=== PATIENT | female | born 1970 | race Caucasian/White ===

== ENCOUNTER → 2018-01-26 11:06 | Outpatient (POV) | payer MEDICAID, SELFPAY | PROVIDERS: Family Provider Nurse Practitioner; PCP Nurse Practitioner; Visit Provider Dentist | DX: Z00.00 Encounter for general adult medical examination without abnormal findings (principal) ==

== ENCOUNTER → 2018-02-09 10:02 | Outpatient (POV) | payer MEDICAID, SELFPAY | PROVIDERS: Visit Provider Dentist | DX: Z00.00 Encounter for general adult medical examination without abnormal findings (principal) ==

== ENCOUNTER → 2018-03-23 09:02 | Outpatient (POV) | payer MEDICAID, SELFPAY | PROVIDERS: Visit Provider Dentist | DX: Z00.00 Encounter for general adult medical examination without abnormal findings (principal) ==

== ENCOUNTER → 2018-08-30 11:59 | Outpatient (CLI) | payer MEDICAID, SELFPAY ==
--- NOTE | 2018-08-30 12:04 | XR_ITS ---
EXAM: XR cervical spine 5V HISTORY: ITS.REASON: NECK PAIN ORDERING PHYSICIAN: Dary Kinsey PATIENT AGE: 48 years COMPARISON: None FINDINGS: Normal alignment. No fracture or dislocation. No lytic or blastic change. There is mild degenerative disc disease at C4-C5 and C5-C6. No obvious foraminal narrowing. No cervical rib. There is an old left second rib fracture IMPRESSION: Mild degenerative disc disease C4-C5 and C5-C6
== END ==
PROVIDERS: PCP Nurse Practitioner; Visit Provider Nurse Practitioner
DX: M54.2 Cervicalgia (principal)
CPT/HCPCS: 72050

== ENCOUNTER 2020-01-20 19:15 | Emergency (ER) | payer OTHER, SELFPAY ==
[2020-01-20 19:21] VITALS: BP 149/79; PULSE 84; RESP 16; TEMP 37.9; O2SAT 99; BMI 33.0
[2020-01-20 19:33] VITALS: BMI 32.9
--- NOTE | 2020-01-20 19:34 | CT_ITS ---
PROCEDURE: CT ABDOMEN PELVIS W CON CLINICAL INDICATION: abd pain Left upper quadrant pain radiating into the back COMPARISON: CT ABDPELW/O CT ABD PELVIS W/O CONTRAST from 01/17/2013 TECHNIQUE: IV Contrast: 75ML OPTIRAY 350 Oral Contrast None Axial images obtained with sagittal and coronal reformats. All CT scans at the facility use one or more dose reduction, viz: automated exposure control, ma/kV adjustment per patient size (including targeted exams where dose is matched to indication, i.e. head), or iterative reconstruction technique. FINDINGS: LOWER THORAX: No acute finding ABDOMEN & PELVIS: The liver, gallbladder, and spleen, and adrenal glands have an unremarkable appearance. No renal or ureteral calculi. No hydronephrosis. Small cysts there is a coarse calcification in the head of the pancreas not significantly changed. No intestinal obstruction or free air. There is mild prominence of the tip of the appendix measuring up to 8 mm. This is without stranding of the periappendiceal fat. This is of questionable clinical significance. Previously the tip of the appendix measured approximately 6-7 mm. There has been a prior hysterectomy. There is mild thickening of the urinary bladder wall. Postsurgical changes are present in the lumbar spine at the L5-S1 level. There are mildly prominent periportal lymph nodes. There is sclerosis of the left hip at the acetabular region and left femoral neck. There is also sclerosis of the ischial tuberosity region. This is not significantly changed IMPRESSION: 1. Mild prominence of the tip of the appendix. This is of questionable clinical significance and needs correlation with clinical findings. 2. Mild periportal adenopathy etiology indeterminate. Consider follow-up to confirm stability. This could be reactive or neoplastic in nature. This 3. Sclerosis of the left hemipelvis in the acetabular region and left femoral neck. This does not appear significantly changed and could be related to old injury or Paget's disease. This was described on an older exam of 10/16/2012 4. There is mild urinary bladder wall thickening which may be seen with incomplete distension, chronic outflow obstruction, or cystitis. Dictated by: Ad Sands MD 01/21/2020 08:19 Ad Sands MD in [facility] 01/21/2020 08:19
--- NOTE | 2020-01-20 19:38 | [facility].EDGENADL ---
ED Disposition Condition on Discharge: Undetermined - Critical Care Critical Care Time: No <Matthieu Ayoub - Last Filed: 01/20/20 19:38> Condition on Discharge: Good Time of Disposition: 21:43 - Critical Care Critical Care Time: No <Calderon Howell - Last Filed: 01/20/20 21:44> Clinical Impression: Abdominal pain Qualifiers: Abdominal location: left upper quadrant Qualified Code(s): R10.12 - Left upper quadrant pain Disposition: Home, Self-Care Instructions: Acute Abdominal Pain Additional Instructions: No up with your PCP. If you have any new, changing, worsening, or concerning symptoms, come back to the emergency department immediately. Referrals: Dary Kinsey APRN [Primary Care Provider] - Attestation: On 01/20/20, the high probability of a clinically significant, sudden or life threatening deterioration of the following system(s) required my full and direct attention, intervention and personal management. The time I documented below is in addition to time spent performing reported procedures but includes the following listed in this critical care notation. Medical Decision Making - Medical Records Medical records reviewed: Yes: I reviewed the patient's medical records. - Jon Inquiry Pt receiving controlled substance: No <Matthieu Ayoub - Last Filed: 01/20/20 19:38> - Medical Records MR Comment: Assessed the patient, and examined her abdomen again, I did not elicit any tenderness in the right lower quadrant. She contends that she has no pain here or around her umbilicus and all of her pain is in the left upper quadrant. CT scan was personally reviewed and does not show any acute findings. She has an appendix that measures 8 mm at the tip, but there is no surrounding inflammation or fluid and given that she is tolerating p.o. and nontender, do not feel that this is appendicitis. Tolerating PO states that her pain in the left upper quadrant is some worse after eating, advised that she follow-up with GI. However, I did give her strict return precautions in case she develops pain in the right lower quadrant or worsening pain at all, or other symptoms. Also given discharge instructions and verbalized understanding and agreement to the plan. Safe to discharge. - Lab Data Result diagrams: 01/20/20 19:50 01/20/20 19:50 <Calderon Howell - Last Filed: 01/20/20 21:44> Vital Signs: 01/20/20 19:21 01/20/20 21:34 Temperature 100.2 F H Temperature Source Oral Pulse Rate [Right Brachial] 84 62 Respiratory Rate 16 17 Blood Pressure [Right Arm] 149/79 H 107/51 L Blood Pressure Mean [Right Arm] 102 69 Blood Pressure Source [Right Arm] Automatic Cuff Automatic Cuff Blood Pressure Position [Right Arm] Sitting Supine 02 Sat by Pulse Oximetry 99 96 Oxygen Delivery Method Room Air Room Air - Lab Data Lab Results 01/20/20 19:50: WBC 8.0, RBC 4.06 L, Hgb 12.1 L, Hct 36.4 L, MCV 89.7, MCH 29.7, MCHC 33.1, RDW 13.5, Plt Count 266, MPV 7.4, Neut % (Auto) 57.4, Lymph % (Auto) 34.3, Bladen % (Auto) 4.8, Eos % (Auto) 2.6, Baso % (Auto) 0.9, Neut # (Auto) 4.6, Lymph # (Auto) 2.7, Bladen # (Auto) 0.4, Eos # (Auto) 0.2, Baso # (Auto) 0.1 01/20/20 19:50: Sodium 137, Potassium 3.6, Chloride 105, Carbon Dioxide 25, Anion Gap 10.6, BUN 15, Creatinine 1.00, Estimated Creat Clear 87, Estimated GFR 59, Est GFR ( Amer) 71, Glucose 109 H, Calcium 8.7, Total Bilirubin 0.2, AST 20, ALT 13, Alkaline Phosphatase 100, Total Protein 7.5, Albumin 3.9, Globulin 3.6 H, Albumin/Globulin Ratio 1.1, Lipase 35 01/20/20 19:50: Lactate 1.1 Orders (Tests/Meds): ED MEDICATIONS Generic Name Dose Route Start Last Admin Trade Name Freq PRN Reason Stop Dose Admin Sodium Chloride 1,000 mls @ 999 mls/hr 01/20/20 19:45 01/20/20 20:29 Sod Chlor 0.9% 1000ml Bag IV 01/20/20 20:45 999 mls/hr .Q1H1M KEN Administration Discontinued Medications Generic Name Dose Route Start Last Admin Trade Name Freq PRN Reason Stop Dose
[2020-01-20 20:10] LABS: Basophils # 0.1 K/mm3 (0-0.2); Basophils % 0.9 % (0.1-2.0); Eosinophils # 0.2 K/mm3 (0.0-0.4); Eosinophils % 2.6 % (0.1-12.0); Hematocrit 36.4 % (37.0-47.0); Hemoglobin 12.1 g/dL (12.2-16.2); Lymphocytes # 2.7 K/mm3 (0.7-4.5); Lymphocytes % 34.3 % (10-50); Mean Corpuscular HGB Conc 33.1 g/dL (31.8-35.4); Mean Corpuscular Hemoglobin 29.7 pg (27.0-31.2); Mean Corpuscular Volume 89.7 fl (81-99); Mean Platelet Volume 7.4 fl (7.4-10.4); Monocytes # 0.4 K/mm3 (0.1-1.0); Monocytes % 4.8 % (1.7-9.3); Neutrophils # 4.6 K/mm3 (1.8-7.8); Neutrophils % 57.4 % (37.0-80.0); Platelet Count 266 K/mm3 (142-424); Red Blood Count 4.06 M/mm3 (4.20-5.40); Red Cell Distribution Width 13.5 % (11.5-17.5)
[2020-01-20 20:14] LABS: Alanine Aminotransferase 13 U/L (12-78); Albumin Level 3.9 g/dl (3.5-5.0); Albumin/Globulin Ratio 1.1 (1.1-1.8); Alkaline Phosphatase 100 U/L (38-126); Anion Gap 10.6 mEq/L (5-15); Aspartate Amino Transferase 20 U/L (14-36); Bilirubin,Total 0.2 mg/dl (0.2-1.3); Blood Urea Nitrogen 15 mg/dl (7-17); Calcium 8.7 mg/dl (8.4-10.2); Carbon Dioxide 25 mmol/L (22.0-30.0); Chloride 105 mmol/L (98-107); Creatinine Clearance Estimated 87 mL/min (50-200); Estimated Glomerular Filt Rate 59 ml/min (>60); GFR (African American) 71 ML/MIN (>60); Globulin 3.6 g/dL (1.3-3.2); Glucose 109 mg/dl (74-100); Lactic Acid 1.1 mmol/L (0.7-2.1); Lipase 35 U/L (23-300); Potassium 3.6 mmoL/L (3.5-5.1); Sodium 137 mmol/L (136-145); Total Protein,Serum 7.5 g/dl (6.3-8.2)
--- NOTE | 2020-01-20 21:03 | PC.NURSE ---
Patient with multiple drug allergies. MD aware of Toradol on allergies, request to give 15 mg
[2020-01-20 21:34] VITALS: BP 107/51; PULSE 62; RESP 17; O2SAT 96
[2020-01-20 21:45] VITALS: BP 107/51; PULSE 58; RESP 16; TEMP 37.2; O2SAT 96
== END 2020-01-20 21:47 | disposition home or self-care (01) ==
PROVIDERS: Emergency Provider Physician Assistant; PCP Nurse Practitioner
DX: R10.12 Left upper quadrant pain (principal); F41.8 Other specified anxiety disorders; J44.9 Chronic obstructive pulmonary disease, unspecified; K21.9 Gastro-esophageal reflux disease without esophagitis; I10 Essential (primary) hypertension; Z87.891 Personal history of nicotine dependence; Z90.710 Acquired absence of both cervix and uterus; Z88.5 Allergy status to narcotic agent; Z88.8 Allergy status to other drugs, medicaments and biological substances
CPT/HCPCS: 74177; 80053; 83605; 83690; 85025; 87040; 96365; 96375; 99283; Q9967

== ENCOUNTER → 2020-07-16 10:23 | Outpatient (CLI) | payer OTHER, SELFPAY ==
--- NOTE | 2020-07-16 10:29 | XR_ITS ---
PROCEDURE: XR CHEST 2V CLINICAL HISTORY: SOB COMPARISON: CR CXR CHEST(2 VIEWS-NOT PORTABLE) from 02/15/2013 CR CXR CHEST(2 VIEWS-NOT PORTABLE) from 09/27/2013 FINDINGS: The cardiomediastinal silhouette and pulmonary vascularity are within normal limits. The lungs are clear without infiltrates, suspicious nodules, or pleural effusions. No acute bony abnormalities. IMPRESSION: No acute findings. Dictated by: Ad Sands MD 07/16/2020 16:42 Ad Sands MD in [facility] 07/16/2020 16:42
--- NOTE | 2020-07-16 10:29 | XR_ITS ---
PROCEDURE: XR SHOULDER RT MIN 2V CLINICAL INDICATION: ? ARTHRITIS Pain with limited range of motion COMPARISON: No exams were available for comparison FINDINGS: No fracture or dislocation. No lytic or blastic change. There is normal mineralization. Minimal osteoarthritic changes the glenohumeral joint. Other findings:None. IMPRESSION: Minimal osteoarthritis glenohumeral joint Dictated by: Ad Sands MD 07/16/2020 16:41 Ad Sands MD in [facility] 07/16/2020 16:41
== END ==
PROVIDERS: PCP Nurse Practitioner Family; Visit Provider Nurse Practitioner Family
DX: R06.02 Shortness of breath (principal); M25.511 Pain in right shoulder
CPT/HCPCS: 71046; 73030

== ENCOUNTER → 2020-08-14 14:05 | Outpatient (CLI) | payer OTHER, SELFPAY | PROVIDERS: PCP Nurse Practitioner Family; Visit Provider Nurse Practitioner Family | DX: R06.02 Shortness of breath (principal) | CPT/HCPCS: 94010 ==

== ENCOUNTER → 2020-08-28 16:10 | Outpatient (CLI) | payer OTHER, SELFPAY ==
--- NOTE | 2020-08-28 16:14 | MR_ITS ---
PROCEDURE: MR SHOULDER RT WO CON CLINICAL INDICATION: RIGHT SHOULDER PAIN, DECREASED ROM Pt c/o rt shoulder pain and rt arm weakness. Limited ROM x1year with no known injury or trauma. COMPARISON: DX XR SHOULDER RT MIN 2V from 07/16/2020 TECHNIQUE: Routine multiplanar multi echo sequences are performed without gadolinium enhancement. FINDINGS: Mild acromioclavicular hypertrophy with subacromial stenosis of approximately 4 mm. No evidence of rotator cuff tear. The supraspinatus, infraspinatus, subscapularis, and teres minor tendons appear intact. There does appear to be a SLAP tear of the anterior glenoid labrum from the 12:00 to 3:00 region. The bicipital tendon is in place. Minimal amount fluid in the bicipital tendon sheath. No fracture or dislocation. IMPRESSION: 1. Slap tear of the glenoid labrum. 2. Low-lying acromion with subacromial stenosis. 3. Mild tenosynovitis of the bicipital tendon sheath Dictated by: Ad Sands MD 09/01/2020 12:02 Ad Sands MD in [place] 09/01/2020 12:02
== END ==
PROVIDERS: PCP Nurse Practitioner Family; Visit Provider Nurse Practitioner Family
DX: M25.511 Pain in right shoulder (principal); M25.611 Stiffness of right shoulder, not elsewhere classified
CPT/HCPCS: 73221

== ENCOUNTER 2020-09-05 15:48 | Emergency (ER) | payer OTHER, SELFPAY ==
[2020-09-05 16:08] VITALS: BP 162/81; PULSE 59; RESP 18; TEMP 37.1; O2SAT 100; BMI 32.0
--- NOTE | 2020-09-05 16:40 | HMH.EDUTC ---
[facility] [place] Clinical Impression: Superior glenoid labrum lesion of right shoulder, initial encounter Disposition: Home, Self-Care Condition on Discharge: Good Instructions: Labral Tear Additional Instructions: Follow up with ortho Prescriptions: Lidocaine [Lidoderm 5% transdermal patch] 1 each TP Q24H 30 Days #30 adh..patch Transmission Status: Pending to [facility] Referrals: Jessenia Sánchez APRN [Primary Care Provider] - Time of Disposition: 16:58 Medical Decision Making - Medical Records Medical records reviewed: Yes: I reviewed the patient's medical records. - Jon Inquiry Pt receiving controlled substance: No Vital Signs: 09/05/20 16:08 Temperature 98.7 F Temperature Source Oral Pulse Rate [Left Radial] 59 L Respiratory Rate 18 Blood Pressure [Left Arm] 162/81 H Blood Pressure Mean [Left Arm] 108 Blood Pressure Source [Left Arm] Automatic Cuff Blood Pressure Position [Left Arm] Sitting 02 Sat by Pulse Oximetry 100 Oxygen Delivery Method Room Air [facility] [place] - General Stated complaint: labrel tear in R shoulder Time Seen by Provider: 09/05/20 16:52 Mode of Arrival: Ambulatory Source of Information: Patient Limitations: No Limitations Description of Symptoms (Recalled from Triage Doc. by RN): Pt c/o R shoulder pain, pt reports she has had an MRI and has been told she has a tear in her shoulder. Pt reports she is wanting medication for pain, states her family doctor office told her they wouldn't write her anything - History of Present Illness Provider Complaint: Patient has pain in her right shoulder. Has been dealing with pain in her right shoulder for the past few months and was diagnosed with a labral tear this am. Saw her PCP who would not write her pain medications. She is allergic to NSAIDs. She is already taking muscle relaxers for her back. She is not sleeping due to the pain. Onset (ago): day(s) (1) Location: right, upper extremity Relieving factors: none Exacerbating factors: none Treatments prior to arrival: none - Related Data Home Medications Medication Instructions Recorded Confirmed alprazolam 1 mg tablet 1 mg PO QID 30 Days #120 07/15/17 07/03/20 atenolol 50 mg tablet 50 mg PO BID 30 Days #60 07/15/17 07/03/20 levothyroxine 75 mcg tablet 75 mcg PO DAILY 30 Days #30 07/15/17 07/03/20 oxybutynin chloride 5 mg tablet 5 mg PO BID 30 Days #60 07/15/17 07/03/20 trazodone 150 mg tablet 150 mg PO DAILY 30 Days #30 07/15/17 07/03/20 Sertraline HCl [Zoloft] 25 mg PO DAILY 08/18/19 07/03/20 celecoxib 200 mg capsule 200 mg PO cap 05/01/20 07/03/20 cyclobenzaprine 10 mg tablet 10 mg PO tab 05/01/20 07/03/20 omeprazole 20 mg capsule,delayed 20 mg PO cap 05/01/20 07/03/20 release topiramate 50 mg tablet 150 mg PO BID 30 Days #180 tab 05/01/20 07/03/20 verapamil 40 mg tablet 40 mg NG-TUBE tab 05/01/20 07/03/20 Previous Rx's Medication Instructions Recorded cephalexin 500 mg capsule 500 mg PO BID 10 Days #20 cap 05/01/20 ciprofloxacin 0.3 %-dexamethasone 4 drp OTIC BID 7 Days #7.5 ml 05/01/20 0.1 % ear drops,suspension methylprednisolone 4 mg tablets in See Rx Instructions PO PER PKG DIR 05/01/20 a dose pack #21 tab Lidocaine [Lidoderm 5% transdermal 1 each TP Q24H 30 Days #30 09/05/20 patch] adh..patch Allergies Allergy/AdvReac Type Severity Reaction Status Date / Time venlafaxine [From Effexor] Allergy Verified 07/03/20 15:20 From LORTAB Allergy Severe S-DIFF. Uncoded 07/03/20 15:20 BREATHING Naproxen Allergy Severe S-SWELLS-OR Uncoded 07/03/20 15:20 AL/THROAT From EFFEXOR Allergy Intermediate I-RASH Uncoded 07/03/20 15:20 From TAMIFLU Allergy Intermediate VOMITTING Uncoded 07/03/20 15:20 ADHESIVE Allergy Mild I-ITCHING Uncoded 07/03/20 15:20 From MOTRIN Allergy Mild INCREASED Uncoded 07/03/20 15:20 HR From VALIUM Allergy Mild INCREASE HR Uncoded 07/03/20 15:20 TRAMADOL Allergy Unknown INCREASED Uncoded 07/03/20 15:20 HR
[2020-09-05 16:45] VITALS: BP 175/100; PULSE 73; RESP 16; TEMP 36.8; O2SAT 98; BMI 31.1
[2020-09-05 17:08] VITALS: BP 172/98; PULSE 70; RESP 16; TEMP 36.8; O2SAT 98
== END 2020-09-05 17:09 | disposition home or self-care (01) ==
LOC: ER 16:13 → UTC 16:16
PROVIDERS: Emergency Provider Physician Assistant; PCP Nurse Practitioner Family
DX: S43.431A Superior glenoid labrum lesion of right shoulder, initial encounter (principal); F41.8 Other specified anxiety disorders; J44.9 Chronic obstructive pulmonary disease, unspecified; K21.9 Gastro-esophageal reflux disease without esophagitis; I10 Essential (primary) hypertension; Z87.891 Personal history of nicotine dependence; Z88.5 Allergy status to narcotic agent; Z88.8 Allergy status to other drugs, medicaments and biological substances; Z79.899 Other long term (current) drug therapy
CPT/HCPCS: 99202; G0463

== ENCOUNTER 2020-09-07 19:07 | Emergency (ER) | payer OTHER, SELFPAY ==
[2020-09-07 19:18] VITALS: BP 151/91; PULSE 72; RESP 17; TEMP 36.5; O2SAT 96; BMI 30.7
--- NOTE | 2020-09-07 19:26 | XR_ITS ---
PROCEDURE: XR CHEST PORTABLE CLINICAL HISTORY: heart palpitations COMPARISON: CR CXR CHEST(2 VIEWS-NOT PORTABLE) from 02/15/2013 CR CXR CHEST(2 VIEWS-NOT PORTABLE) from 09/27/2013 DX XR CHEST 2V from 07/16/2020 FINDINGS: The cardiomediastinal silhouette and pulmonary vascularity are within normal limits. The lungs are clear without infiltrates, suspicious nodules, or pleural effusions. No acute bony abnormalities. IMPRESSION: No acute findings. Dictated by: Ad Sands MD 09/08/2020 06:18 Ad Sands MD in [facility] 09/08/2020 06:18
--- NOTE | 2020-09-07 19:26 | CT_ITS ---
PROCEDURE: CT HEAD/BRAIN WO CON CLINICAL INDICATION: headache COMPARISON: No exams were available for comparison TECHNIQUE: Axial images obtained. All CT scans at the facility use one or more dose reduction, viz: automated exposure control, ma/kV adjustment per patient size (including targeted exams where dose is matched to indication, i.e. head), or iterative reconstruction technique. FINDINGS: No midline shift, mass effect, intracranial hemorrhage, hydrocephalus, or extra-axial fluid collection is evident. The calvarium has an unremarkable appearance. No mastoid effusion. No sinus air-fluid level. IMPRESSION: No acute intracranial finding Dictated by: Ad Sands MD 09/08/2020 07:14 Ad Sands MD in [facility] 09/08/2020 07:14
--- NOTE | 2020-09-07 19:26 | ECG_ITS ---
APPROVED REPORT Exam: Resting ECG HR:56 bpm ECG Measurements Heart Rate 56 AXES MA 180 P 22 QRSd 72 QRS 25 QT 412 T 9 QTc 397 Conclusion Sinus bradycardia Nonspecific T wave abnormality Abnormal ECG Electronically signed by : Rodriguez Carty, 09/08/2020 18:05:10
[2020-09-07 20:09] LABS: Basophils # 0.1 K/mm3 (0-0.2); Basophils % 0.9 % (0.1-2.0); Eosinophils # 0.4 K/mm3 (0.0-0.4); Eosinophils % 4.6 % (0.1-12.0); Hematocrit 39.3 % (37.0-47.0); Hemoglobin 12.6 g/dL (12.2-16.2); Lymphocytes # 3.2 K/mm3 (0.7-4.5); Mean Corpuscular Hemoglobin 28.8 pg (27.0-31.2); Mean Corpuscular Volume 89.9 fl (81-99); Mean Platelet Volume 7.1 fl (7.4-10.4); Monocytes # 0.4 K/mm3 (0.1-1.0); Neutrophils # 5.5 K/mm3 (1.8-7.8); Neutrophils % 57.6 % (37.0-80.0); Platelet Count 274 K/mm3 (142-424); Red Blood Count 4.37 M/mm3 (4.20-5.40); White Blood Count 9.6 K/mm3 (4.8-10.8)
--- NOTE | 2020-09-07 20:18 | [facility].EDGENADL ---
ED Disposition Clinical Impression: Superior glenoid labrum lesion of right shoulder, initial encounter Headache Qualifiers: Headache type: unspecified Headache chronicity pattern: acute headache Intractability: not intractable Qualified Code(s): R51.9 - Headache, unspecified Chest pain Qualifiers: Chest pain type: unspecified Qualified Code(s): R07.9 - Chest pain, unspecified Disposition: Home, Self-Care Condition on Discharge: Good Instructions: DI for Acute Pain -- Adult Additional Instructions: call pcp in am Referrals: Jessenia Sánchez APRN [Primary Care Provider] - - Critical Care Critical Care Time: No Attestation: On 09/07/20, the high probability of a clinically significant, sudden or life threatening deterioration of the following system(s) required my full and direct attention, intervention and personal management. The time I documented below is in addition to time spent performing reported procedures but includes the following listed in this critical care notation. Medical Decision Making - Medical Records Medical records reviewed: Yes: I reviewed the patient's medical records. - Jon Inquiry Pt receiving controlled substance: No Vital Signs: 09/07/20 19:18 Temperature 97.7 F Temperature Source Oral Pulse Rate [Left Brachial] 72 Respiratory Rate 17 Blood Pressure [Left Arm] 151/91 H Blood Pressure Mean [Left Arm] 111 Blood Pressure Source [Left Arm] Automatic Cuff Blood Pressure Position [Left Arm] Sitting 02 Sat by Pulse Oximetry 96 Oxygen Delivery Method Room Air - Lab Data Lab results reviewed: Yes: I reviewed the patient's lab results. Lab Results 09/07/20 19:55: WBC 9.6, RBC 4.37, Hgb 12.6, Hct 39.3, MCV 89.9, MCH 28.8, MCHC 32.0, RDW 14.0, Plt Count 274, MPV 7.1 L, Neut % (Auto) 57.6, Lymph % (Auto) 33.0, Perry % (Auto) 4.0, Eos % (Auto) 4.6, Baso % (Auto) 0.9, Neut # (Auto) 5.5, Lymph # (Auto) 3.2, Perry # (Auto) 0.4, Eos # (Auto) 0.4, Baso # (Auto) 0.1 09/07/20 19:55: Sodium 136, Potassium 3.9, Chloride 106, Carbon Dioxide 22, Anion Gap 11.9, BUN 16, Creatinine 0.90, Estimated Creat Clear 89, Estimated GFR 66, Est GFR ( Amer) 80, Glucose 153 H, Calcium 8.7, Troponin I < 0.01, TSH 1.06, Thyroxine (T4) 9.5 Result diagrams: 09/07/20 19:55 09/07/20 19:55 Orders (Tests/Meds): ED MEDICATIONS Discontinued Medications Generic Name Dose Route Start Last Admin Trade Name Freq PRN Reason Stop Dose Admin Ketorolac Tromethamine 30 mg 09/07/20 20:25 09/07/20 20:47 Ketorolac 30mg/Ml Vial IV 09/07/20 20:26 Not Given ONCE ONE Methylprednisolone Sodium Succinate 125 mg 09/07/20 20:35 09/07/20 20:47 Methylprednisolone Sod Succ 125mg Vial IV 09/07/20 20:36 Not Given ONCE ONE Methylprednisolone Sodium Succinate 125 mg 09/07/20 20:47 09/07/20 20:48 Methylprednisolone Sod Succ 125mg Vial IM 09/07/20 20:48 125 mg ONCE ONE Administration ORDERS Category Date Time Status CT head/brain wo con Stat Cat Scan 09/07/20 19:26 Taken XR chest portable Stat Exams 09/07/20 19:26 Taken Troponin I Q3H Lab 09/07/20 22:30 Ordered Troponin I Q3H Lab 09/08/20 01:30 Ordered - Radiology Data #1 Image(s): Chest Image Reviewed: Yes I reviewed the patient's radiology image Preliminary Findings: Normal/NAD - CT Data CT Scan: Head Time Received: 21:[address] Reviewed: Yes: I have viewed the radiologist's interpretation Preliminary Findings: Normal/NAD - ECG Data Tracing #1 Normal Sinus Rhythm: Yes Ischemic changes: non-specific ST-T wave changes - MARIA ESTHER Score for Non-Stemi Age of Patient: 50-59 years old Heart Rate: 70-89 bpm Systolic Blood Pressure: 140-159 mmHg Serum Creatinine: 0.80-1.19 mg/dl CHF Killip Class: I-No CHF Other Risk Factors: None Non-Stemi Risk Score: 81 Medical Decision Narrative: has slap type injurt rt shoulder per her mri and has assoc pain with mohamud and not feeling well but neg w/u General Adult
[2020-09-07 20:28] LABS: Anion Gap 11.9 mEq/L (5-15); Blood Urea Nitrogen 16 mg/dl (7-17); Calcium 8.7 mg/dl (8.4-10.2); Carbon Dioxide 22 mmol/L (22.0-30.0); Chloride 106 mmol/L (98-107); Creatinine Clearance Estimated 89 mL/min (50-200); Estimated Glomerular Filt Rate 66 ml/min (>60); GFR (African American) 80 ML/MIN (>60); Glucose 153 mg/dl (74-100); Potassium 3.9 mmoL/L (3.5-5.1); Sodium 136 mmol/L (136-145)
[2020-09-07 20:43] LABS: Troponin I < 0.01 ng/ml (0.00-0.034)
[2020-09-07 20:46] LABS: T4 (Thyroxine) 9.5 ug/dl (5.53-11.0)
[2020-09-07 21:00] LABS: Thyroid Stimulating Hormone 1.06 uIU/mL (0.465-4.68)
[2020-09-07 21:31] VITALS: BP 126/61; PULSE 73; RESP 18; TEMP 36.8; O2SAT 98
== END 2020-09-07 21:34 | disposition home or self-care (01) ==
PROVIDERS: Emergency Medicine; Emergency Provider Emergency Medicine; PCP Nurse Practitioner Family
DX: S43.431A Superior glenoid labrum lesion of right shoulder, initial encounter (principal); R51.9 Headache, unspecified; F41.8 Other specified anxiety disorders; K21.9 Gastro-esophageal reflux disease without esophagitis; J44.9 Chronic obstructive pulmonary disease, unspecified; I10 Essential (primary) hypertension; Z87.891 Personal history of nicotine dependence; Z79.899 Other long term (current) drug therapy; Z88.8 Allergy status to other drugs, medicaments and biological substances
CPT/HCPCS: 36415; 70450; 71045; 80048; 84436; 84443; 84484; 85025; 93005; 96372; 99282

== ENCOUNTER 2020-09-11 14:03 | Emergency (ER) | payer OTHER, SELFPAY ==
[2020-09-11 14:08] VITALS: BP 147/82; PULSE 63; RESP 14; TEMP 37.1; O2SAT 95; BMI 31.1
--- NOTE | 2020-09-11 14:25 | HMH.EDUTC ---
[facility] [place] Impression: Contact dermatitis Qualifiers: Contact dermatitis type: unspecified Contact dermatitis trigger: unspecified trigger Qualified Code(s): L25.9 - Unspecified contact dermatitis, unspecified cause Disposition: Home, Self-Care Condition on Discharge: Good Instructions: DI for Contact Dermatitis Additional Instructions: Avoid contact with the offending substance. Follow up with your regular doctor. GO TO THE ER FOR ANY WORSENING SYMPTOMS OR CONCERNS Referrals: Jessenia Sánchez APRN [Primary Care Provider] - Time of Disposition: 15:00 Medical Decision Making - Medical Records Medical records reviewed: No: I reviewed the patient's medical records. - Jon Inquiry Pt receiving controlled substance: No Vital Signs: 09/11/20 14:08 09/11/20 15:08 Temperature 98.7 F 98 F Temperature Source Oral Pulse Rate 65 Pulse Rate [Right] 63 Respiratory Rate 14 19 Blood Pressure 142/86 H Blood Pressure [Right Arm] 147/82 H Blood Pressure Mean [Right Arm] 103 02 Sat by Pulse Oximetry 95 Orders (Tests/Meds): ED MEDICATIONS Discontinued Medications Generic Name Dose Route Start Last Admin Trade Name Roxanna PRN Reason Stop Dose Admin Methylprednisolone Acetate 60 mg 09/11/20 14:43 09/11/20 14:49 Methylprednisolone Acetate 40mg/Ml Vial IM 09/11/20 14:44 60 mg ONCE ONE Administration [facility] [place] - General Stated complaint: rash on left side of face Time Seen by Provider: 09/11/20 14:25 Mode of Arrival: Ambulatory Source of Information: Patient Limitations: No Limitations Description of Symptoms (Recalled from Triage Doc. by RN): PT STATES SHE HAS A RAISED RASH ON HER CHIN. SHE ALSO HAS A BLISTER ON HER LEFT UPPER EYE LID. PT STATES SHE STARTED TYLENOL 3 TUESDAY AND IS NOT SURE IF THAT IS IT. ALSO SHE HAS AN OUTDOOR/INDOOR CAT AND STATES IT MAY HAVE BROUGHT POISON TESHA IN. HEENT Symptoms (Recalled from RN notes): No Resp Symptoms (Recalled from RN notes): No Skin Symptoms (Recalled from RN notes): Yes (RAISED RASH ON CHIN AND BLISTER/ PAPULE ON UPPER L EYELID) MS Symptoms (Recalled from RN notes): No Functional Status (Recalled from RN notes): NA - History of Present Illness Provider Complaint: She c/o having a rash that itches on the right side of her face for the past 2 days. - Related Data Home Medications Medication Instructions Recorded Confirmed alprazolam 1 mg tablet 1 mg PO QID 30 Days #120 07/15/17 07/03/20 atenolol 50 mg tablet 50 mg PO BID 30 Days #60 07/15/17 07/03/20 levothyroxine 75 mcg tablet 75 mcg PO DAILY 30 Days #30 07/15/17 07/03/20 oxybutynin chloride 5 mg tablet 5 mg PO BID 30 Days #60 07/15/17 07/03/20 trazodone 150 mg tablet 150 mg PO DAILY 30 Days #30 07/15/17 07/03/20 Sertraline HCl [Zoloft] 25 mg PO DAILY 08/18/19 07/03/20 topiramate 50 mg tablet 75 mg PO BID 30 Days #180 tab 05/01/20 07/03/20 verapamil 40 mg tablet 40 mg PO BID tab 05/01/20 07/03/20 Baclofen 5 mg PO BID 09/07/20 09/07/20 Lidocaine [Lidoderm 5% transdermal 1 each TP Q24H 09/07/20 patch] Allergies Allergy/AdvReac Type Severity Reaction Status Date / Time ketorolac [From Toradol] Allergy Verified 09/11/20 14:18 venlafaxine [From Effexor] Allergy Verified 09/11/20 14:18 From LORTAB Allergy Severe S-DIFF. Uncoded 07/03/20 15:20 BREATHING Naproxen Allergy Severe S-SWELLS-OR Uncoded 07/03/20 15:20 AL/THROAT From EFFEXOR Allergy Intermediate I-RASH Uncoded 07/03/20 15:20 From TAMIFLU Allergy Intermediate VOMITTING Uncoded 07/03/20 15:20 ADHESIVE Allergy Mild I-ITCHING Uncoded 07/03/20 15:20 From MOTRIN Allergy Mild INCREASED Uncoded 07/03/20 15:20 HR From VALIUM Allergy Mild INCREASE HR Uncoded 07/03/20 15:20 TRAMADOL Allergy Unknown INCREASED Uncoded 07/03/20 15:20 HR Albuterol AdvReac Mild INCREASE HR Uncoded 07/03/20 15:20 - Worker's Comp Is this a Worker's Comp case?: No [facility] History - Hepatitis A Screen Drug u
[2020-09-11 15:08] VITALS: BP 142/86; PULSE 65; RESP 19; TEMP 36.6
== END 2020-09-11 15:08 | disposition home or self-care (01) ==
PROVIDERS: Emergency Provider Nurse Practitioner Family; PCP Nurse Practitioner Family
DX: L25.9 Unspecified contact dermatitis, unspecified cause (principal); J44.9 Chronic obstructive pulmonary disease, unspecified; K21.9 Gastro-esophageal reflux disease without esophagitis; I10 Essential (primary) hypertension; E03.9 Hypothyroidism, unspecified; F41.8 Other specified anxiety disorders; Z87.891 Personal history of nicotine dependence; F43.12 Post-traumatic stress disorder, chronic; I34.1 Nonrheumatic mitral (valve) prolapse; Z79.899 Other long term (current) drug therapy
CPT/HCPCS: 96372; 99202; G0463; J1030

== ENCOUNTER 2020-10-02 08:21 | Emergency (ER) | payer OTHER, SELFPAY ==
[2020-10-02 08:22] VITALS: BP 111/86; PULSE 63; RESP 18; TEMP 36.6; O2SAT 97; BMI 29.9
--- NOTE | 2020-10-02 08:24 | HMH.EDGENADL ---
ED Disposition Clinical Impression: Dehydration, Hypokalemia Disposition: Home, Self-Care Condition on Discharge: Good Instructions: DI for Dehydration -- Adult, DI for Hypokalemia Additional Instructions: Stop chlorthalidone, call your primary care doctor today to see if you need to change her medication regimen. Follow-up within the next several days for recheck of labs and reevaluation. Referrals: Erik Noriega MD [Primary Care Provider] - 10/03/20 - Critical Care Critical Care Time: No Attestation: On , the high probability of a clinically significant, sudden or life threatening deterioration of the following system(s) required my full and direct attention, intervention and personal management. The time I documented below is in addition to time spent performing reported procedures but includes the following listed in this critical care notation. Medical Decision Making - Medical Records Medical records reviewed: Yes: I reviewed the patient's medical records. - Jon Inquiry Pt receiving controlled substance: No Vital Signs: 10/02/20 08:22 Temperature 97.9 F Temperature Source Oral Pulse Rate [Right] 63 Respiratory Rate 18 Blood Pressure [Right Arm] 111/86 Blood Pressure Mean [Right Arm] 94 02 Sat by Pulse Oximetry 97 Oxygen Delivery Method Room Air - Lab Data Lab results reviewed: Yes: I reviewed the patient's lab results. Lab Results 10/02/20 08:30: Urine Color Yellow, Urine Appearance Clear, Urine pH 6.0, Ur Specific Cummings 1.020, Urine Protein Negative, Urine Glucose (UA) Negative, Urine Ketones Negative, Urine Blood Negative, Urine Nitrate Negative, Urine Bilirubin Negative, Urine Urobilinogen 0.2, Ur Leukocyte Esterase Negative, Urine RBC None, Urine WBC 3-5, Ur Squamous Epith Cells 3-5, Urine Bacteria None 10/02/20 08:30: WBC 11.9 H, RBC 5.34, Hgb 15.5, Hct 45.9, MCV 86.0, MCH 29.1, MCHC 33.8, RDW 13.7, Plt Count 324, MPV 6.9 L, Neut % (Auto) 74.4, Lymph % (Auto) 18.3, [place] % (Auto) 6.0, Eos % (Auto) 0.8, Baso % (Auto) 0.5, Neut # (Auto) 8.8 H, Lymph # (Auto) 2.2, [place] # (Auto) 0.7, Eos # (Auto) 0.1, Baso # (Auto) 0.1 10/02/20 08:30: Sodium 132 L, Potassium 3.2 L, Chloride 91 L, Carbon Dioxide 29, Anion Gap 15.2 H, BUN 20 H, Creatinine 1.10 H, Estimated Creat Clear 71, Estimated GFR 52 L, Est GFR ( Amer) 63, Glucose 153 H, Calcium 9.3 Result diagrams: 10/02/20 08:30 10/02/20 08:30 Orders (Tests/Meds): ED MEDICATIONS Generic Name Dose Route Start Last Admin Trade Name Freq PRN Reason Stop Dose Admin Sodium Chloride 1,000 mls @ 999 mls/hr 10/02/20 09:00 Sod Chlor 0.9% 1000ml Bag IV 10/02/20 10:00 .Q1H1M [facility] Medical Decision Narrative: Patient with benign exam here, given a liter of fluids for what appears to be some dehydration from chlorthalidone. Advised calling her primary care doctor today to see if there might be an alternative medication for her. Recommended stopping this medication for now. She had a slightly low potassium and sodium which should improve with fluid resuscitation and p.o. potassium given here in the ED. She will need close follow-up with her PCP within the next several days for reevaluation. No UTI. Hemodynamically stable here. General Adult HPI - General Stated complaint: pain Time Seen by Provider: 10/02/20 08:24 Mode of Arrival: EMS Source of Information: Patient, EMS Limitations: No Limitations - History of Present Illness HPI narrative: This is a 50-year-old female with a past medical history significant for hypertension, anxiety, GERD, COPD who presents to the emergency department for evaluation of weakness and concern for possible medication reaction. Patient started taking chlorthalidone 4 days ago for assistance with blood pressure control. She states that she has been having increased urinary frequency, but no dysuria. She is concerned that she has been urinating too much however because yesterday she got in the shower, b
[2020-10-02 08:34] VITALS: BP 149/87; PULSE 61; O2SAT 96
[2020-10-02 08:40] LABS: Microscopic, Urine URINE MICROSCOPIC (MICROSCOPIC)
[2020-10-02 08:42] LABS: Appearance,Urine CLEAR (Clear); Basophils # 0.1 K/mm3 (0-0.2); Basophils % 0.5 % (0.1-2.0); Bilirubin,Urine Negative (Negative); Blood, Urine Negative (Negative); Color,Urine YELLOW (Yellow); Eosinophils # 0.1 K/mm3 (0.0-0.4); Eosinophils % 0.8 % (0.1-12.0); Glucose,Urine (UA) Negative (Negative); Hematocrit 45.9 % (37.0-47.0); Hemoglobin 15.5 g/dL (12.2-16.2); Ketones,Urine Negative (Negative); Leukocyte Esterase,Urine Negative (Negative); Lymphocytes # 2.2 K/mm3 (0.7-4.5); Lymphocytes % 18.3 % (10-50); Mean Corpuscular HGB Conc 33.8 g/dL (31.8-35.4); Mean Corpuscular Hemoglobin 29.1 pg (27.0-31.2); Mean Platelet Volume 6.9 fl (7.4-10.4); Monocytes # 0.7 K/mm3 (0.1-1.0); Neutrophils # 8.8 K/mm3 (1.8-7.8); Neutrophils % 74.4 % (37.0-80.0); Nitrate,Urine Negative (Negative); Platelet Count 324 K/mm3 (142-424); Protein,Urine Negative (Negative); Red Blood Count 5.34 M/mm3 (4.20-5.40); Red Cell Distribution Width 13.7 % (11.5-17.5); Urobilinogen,Urine 0.2 EU/dl (0.2); White Blood Count 11.9 K/mm3 (4.8-10.8)
[2020-10-02 08:45] LABS: Chloride 91 mmol/L (98-107); Potassium 3.2 mmoL/L (3.5-5.1); Sodium 132 mmol/L (136-145)
[2020-10-02 08:48] LABS: Anion Gap 15.2 mEq/L (5-15); Blood Urea Nitrogen 20 mg/dl (7-17); Carbon Dioxide 29 mmol/L (22.0-30.0); Creatinine Clearance Estimated 71 mL/min (50-200); Estimated Glomerular Filt Rate 52 ml/min (>60); GFR (African American) 63 ML/MIN (>60)
[2020-10-02 08:49] LABS: Calcium 9.3 mg/dl (8.4-10.2); Glucose 153 mg/dl (74-100)
[2020-10-02 09:01] VITALS: BP 129/85; PULSE 69; RESP 18; O2SAT 98
--- NOTE | 2020-10-02 09:12 | PC.NURSE ---
PATIENT UP FOR DISCHARGE BUT MD WANTS IV FLUIDS TO BE COMPLETE PRIOR TO DISCHARGE
[2020-10-02 09:30] VITALS: BP 132/86; PULSE 51; RESP 18; O2SAT 95
[2020-10-02 09:45] VITALS: BP 132/86; PULSE 51; RESP 16; TEMP 36.6; O2SAT 95
== END 2020-10-02 09:47 | disposition home or self-care (01) ==
PROVIDERS: Emergency Provider Emergency Medicine; PCP Family Medicine
DX: E86.0 Dehydration (principal); E87.6 Hypokalemia; K21.9 Gastro-esophageal reflux disease without esophagitis; J44.9 Chronic obstructive pulmonary disease, unspecified; F17.210 Nicotine dependence, cigarettes, uncomplicated
CPT/HCPCS: 80048; 81001; 85025; 96374; 99281

== ENCOUNTER 2020-12-10 12:17 | Emergency (ER) | payer OTHER, SELFPAY ==
[2020-12-10 12:36] VITALS: BP 111/63; PULSE 62; RESP 18; TEMP 36.8; O2SAT 97; BMI 30.7
[2020-12-10 12:47] LABS: Apearance,Urine Clear (Clear); Color,Urine Dark Yellow (Yellow); Glucose,Urine (UA) Negative (Negative); Ketones,Urine Negative (Negative); PH,Urine 5.5 (5.0-8.5); Protein,Urine 1+ (Negative)
--- NOTE | 2020-12-10 12:47 | HMH.EDUTC ---
[facility] – [place] Disposition Clinical Impression: UTI (urinary tract infection) Qualifiers: Urinary tract infection type: site unspecified Hematuria presence: with hematuria Qualified Code(s): N39.0 - Urinary tract infection, site not specified; R31.9 - Hematuria, unspecified Disposition: Home, Self-Care Condition on Discharge: Good Instructions: Urinary Tract Infection, DI for Urinary Tract Infection (UTI), Nitrofurantoin Additional Instructions: *Increase fluids. Water not Soda or Tea *Start antibiotic immediately and be sure to take as ordered for the FULL length of time although you should start to see improvement over the next 48 hours *Pyridium as needed Remember this medication will turn your urine Beckham. This is normal but it will stain what ever it gets on *You should not use Pyridium for more than 48 hours. If so , follow up with your primary physician to review urine culture and ensure that antibiotic is adequate for infection *Be SURE to follow up anytime for new or worsening symptoms with your family doctor. AND in 48 hours for urine culture results with your family doctor, if you do not have a doctor then you may call back to the [facility] for urine culture results and further treatment. We do recommend that you choose and establish care with a Primary Care Physician. AND follow up with them in 10-14 days to repeat UA to ensure infection is resolved and blood no longer present *Be sure to let your PCP know that we sent urine cultures from the [facility] so they can follow up to ensure that you area the on the correct antibiotic Call your doctor office and make appointment for 48 hours (2 days from today) to follow up and get the results of your urine culture and further treatment Prescriptions: Nitrofurantoin Monohyd/M-Cryst [Macrobid 100 mg Capsule] 100 mg PO BID 10 Days #20 cap Transmission Status: Pending to [facility] Phenazopyridine HCl [Pyridium 200mg Tablet] 200 pow PO TID #6 tab Transmission Status: Pending to [facility] Referrals: Rodriguez Torre MD [Primary Care Provider] - As needed Time of Disposition: 13:00 Medical Decision Making - Jon Inquiry Pt receiving controlled substance: No Jon was queried for this patient: No Vital Signs: 12/10/20 12:36 Temperature 98.3 F Temperature Source Oral Pulse Rate [Left] 62 Respiratory Rate 18 Blood Pressure [Right Arm] 111/63 Blood Pressure Mean [Right Arm] 79 02 Sat by Pulse Oximetry 97 Medical Decision Narrative: Denies history of kidney stones Discussed that we could transfer her to the ED for further evaluation and rule out stone and patient declined states that she will try medication and return if needed [facility] – [place] HPI - General Stated complaint: back pain, hurts when urinates Time Seen by Provider: 12/10/20 12:48 Mode of Arrival: Ambulatory Source of Information: Patient Limitations: No Limitations Description of Symptoms (Recalled from Triage Doc. by RN): pt c/o L flank pain after peeing. HEENT Symptoms (Recalled from RN notes): No Resp Symptoms (Recalled from RN notes): No Skin Symptoms (Recalled from RN notes): No MS Symptoms (Recalled from RN notes): No Functional Status (Recalled from RN notes): na - History of Present Illness Provider Complaint: Patient state that she has been having achy like feeling in her left flank area on and off for several days State that this morning she started having burning with urination and feeling of urgency and frequency States that today she has continued and her urine looked dark so she came in to get checked - Related Data Home Medications Medication Instructions Recorded Confirmed atenolol 50 mg tablet 50 mg PO BID 30 Days #60 07/15/17 11/07/20 levothyroxine 75 mcg tablet 75 mcg PO DAILY 30 Days #30 07/15/17 11/07/20 oxybutynin chloride 5 mg tablet 5 mg PO BID 30 Days #60 07/15/17 11/07/20 trazodone 150 mg tablet 150 mg PO DAILY 30 Days #30 07/15/17 11/07/20 Sertraline HCl [Zoloft] 25 mg PO KATARINA
[2020-12-10 12:48] LABS: Bilirubin,Urine Negative (Negative); Blood, Urine 3+ (Negative); UTC Leukocyte Esterase,Urine 2+ (Negative); UTC Nitrate,Urine Negative (Negative); Urobilinogen,Urine 0.2 EU/dl (0.2)
[2020-12-10 13:18] VITALS: BP 111/62; PULSE 63; RESP 19; TEMP 36.8
== END 2020-12-10 13:18 | disposition home or self-care (01) ==
PROVIDERS: Emergency Provider Nurse Practitioner; PCP Family Medicine
DX: N30.01 Acute cystitis with hematuria (principal); J44.9 Chronic obstructive pulmonary disease, unspecified; K21.9 Gastro-esophageal reflux disease without esophagitis; F41.8 Other specified anxiety disorders; I10 Essential (primary) hypertension; I34.1 Nonrheumatic mitral (valve) prolapse; F17.210 Nicotine dependence, cigarettes, uncomplicated; Z91.048 Other nonmedicinal substance allergy status; Z88.8 Allergy status to other drugs, medicaments and biological substances; Z79.899 Other long term (current) drug therapy
CPT/HCPCS: 81003; 87086; 87088; 87186; 99202; G0463

== ENCOUNTER 2020-12-26 10:00 | Outpatient (RCR) | payer OTHER, SELFPAY | END 2020-12-26 10:05 | disposition home or self-care (01) | LOC: OT 10:00 | PROVIDERS: PCP Nurse Practitioner Family; Visit Provider Orthopaedic Surgery | DX: M75.01 Adhesive capsulitis of right shoulder (principal); S43.431A Superior glenoid labrum lesion of right shoulder, initial encounter | CPT/HCPCS: 97014; 97110; 97140; 97164; 97165; 97530; G0283 ==

== ENCOUNTER → 2021-03-31 10:37 | Outpatient (CLI) | payer OTHER, SELFPAY | PROVIDERS: Visit Provider Surgery | DX: Z01.812 Encounter for preprocedural laboratory examination (principal); Z11.52 Encounter for screening for COVID-19; Z12.11 Encounter for screening for malignant neoplasm of colon | CPT/HCPCS: C9803; U0003; U0005 ==

== ENCOUNTER 2021-04-02 10:05 | Day surgery (SDC) | payer OTHER, SELFPAY ==
[2021-04-02 10:40] VITALS: BP 128/53; PULSE 51; RESP 18; TEMP 36.2; O2SAT 98; BMI 29.2
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
[2021-04-02 11:23] VITALS: O2SAT 97
--- NOTE | 2021-04-02 11:53 | HMH.SCOPE ---
- Procedure: Date: 04/02/21 Patient Date of :: 1970 Procedure Performed:: Colonoscopy Indications:: History of polyps Performing Provider:: Fish Frances MD Referring Provider:: . Sedation:: Monitored anesthesia care Procedure:: After informed consent was obtained the patient was taken to the endoscopy suite. Sedation ensued after the patient was transferred to the left lateral decubitus position. Pulse, blood pressure, and oxygen saturation were monitored throughout the procedure. Digital rectal exam revealed no significant abnormality. The colonoscope was placed in position. The entire colon was evaluated. The colonoscope was carefully removed and the patient was transferred to recovery in stable condition. Please see findings and specimens below for detail. Findings:: Hemorrhoidal tag/cushions Bowel preparation relatively poor Moderate spasticity/lack of relaxation Specimens:: None Recommendations:: Repeat colonoscopy in 2-3 years with extended bowel preparation. If repeat colonoscopy reveals no significant abnormality, timing of future colonoscopies will likely be extended. Complications:: None with the exception of relatively poor bowel preparation Estimated blood obtained (mL): 0
[2021-04-02 11:55] VITALS: BP 113/68; PULSE 69; RESP 16; TEMP 36.1; O2SAT 97
[2021-04-02 12:05] VITALS: BP 122/70; PULSE 69; RESP 18; TEMP 36.1; O2SAT 97
[2021-04-02 12:15] VITALS: BP 119/71; PULSE 68; RESP 18; TEMP 36.1; O2SAT 100
[2021-04-02 12:40] VITALS: BP 119/71; PULSE 68; RESP 18; TEMP 36.1; O2SAT 100
== END 2021-04-02 12:40 | disposition home or self-care (01) ==
LOC: OUTP 10:07
PROVIDERS: PCP Family Medicine; Visit Provider Surgery
PROC: 0DJD8ZZ Inspection of Lower Intestinal Tract, Via Natural or Artificial Opening Endoscopic (ICD-10-PCS; CPT 45378; principal; 2021-04-02 11:30)
DX: Z12.11 Encounter for screening for malignant neoplasm of colon (principal); Z86.010 Personal history of colon polyps; K64.0 First degree hemorrhoids; K56.2 Volvulus; J44.9 Chronic obstructive pulmonary disease, unspecified; K21.9 Gastro-esophageal reflux disease without esophagitis; F41.9 Anxiety disorder, unspecified; F32.A Depression, unspecified; I10 Essential (primary) hypertension; E89.0 Postprocedural hypothyroidism; Z90.710 Acquired absence of both cervix and uterus; Z87.891 Personal history of nicotine dependence
CPT/HCPCS: 45378

== ENCOUNTER → 2021-04-15 11:02 | Outpatient (CLI) | payer OTHER, SELFPAY ==
[2021-04-15 11:33] LABS: Basophils # 0.1 K/mm3 (0-0.2); Basophils % 0.7 % (0.1-2.0); Eosinophils # 0.2 K/mm3 (0.0-0.4); Eosinophils % 1.7 % (0.1-12.0); Hematocrit 41.1 % (37.0-47.0); Hemoglobin 13.8 g/dL (12.2-16.2); Lymphocytes % 19.6 % (10-50); Mean Corpuscular HGB Conc 33.6 g/dL (31.8-35.4); Mean Corpuscular Hemoglobin 29.7 pg (27.0-31.2); Mean Corpuscular Volume 88.4 fl (81-99); Mean Platelet Volume 8.3 fl (7.4-10.4); Monocytes # 0.4 K/mm3 (0.1-1.0); Neutrophils # 7.4 K/mm3 (1.8-7.8); Platelet Count 293 K/mm3 (142-424); Red Blood Count 4.65 M/mm3 (4.20-5.40); Red Cell Distribution Width 13.8 % (11.5-17.5)
[2021-04-15 13:05] LABS: Chloride 105 mmol/L (98-107)
[2021-04-15 13:06] LABS: Potassium 4.2 mmoL/L (3.5-5.1); Sodium 140 mmol/L (136-145)
[2021-04-15 13:08] LABS: Blood Urea Nitrogen 9 mg/dl (7-17); Estimated Glomerular Filt Rate 66 ml/min (>60); GFR (African American) 80 ML/MIN (>60)
[2021-04-15 13:09] LABS: Alanine Aminotransferase 6 U/L (12-78); Albumin Level 4.3 g/dl (3.5-5.0); Albumin/Globulin Ratio 1.4 (1.1-1.8); Alkaline Phosphatase 88 U/L (38-126); Anion Gap 12.2 mEq/L (5-15); Aspartate Amino Transferase 22 U/L (14-36); Bilirubin,Total 0.2 mg/dl (0.2-1.3); Calcium 9.1 mg/dl (8.4-10.2); Carbon Dioxide 27 mmol/L (22.0-30.0); Glucose 98 mg/dl (74-100); Total Protein,Serum 7.3 g/dl (6.3-8.2)
== END ==
PROVIDERS: Visit Provider Surgery
DX: R10.32 Left lower quadrant pain (principal)
CPT/HCPCS: 36415; 80053; 85025

== ENCOUNTER → 2021-04-22 09:33 | Outpatient (CLI) | payer OTHER, SELFPAY ==
--- NOTE | 2021-04-22 09:33 | CT_ITS ---
PROCEDURE: CT ABDOMEN PELVIS W CON CLINICAL INDICATION: lower quad pain COMPARISON: CT ABDPELW/O CT ABD PELVIS W/O CONTRAST from 01/17/[address] ABDOMEN PELVIS W CON from 01/20/2020 TECHNIQUE: IV Contrast: 75ML Isovue 370 Oral Contrast 450ml Redicat Axial images obtained with sagittal and coronal reformats. All CT scans at the facility use one or more dose reduction, viz: automated exposure control, ma/kV adjustment per patient size (including targeted exams where dose is matched to indication, i.e. head), or iterative reconstruction technique. FINDINGS: LOWER THORAX: No acute finding ABDOMEN & PELVIS: The liver, spleen, adrenal glands, and kidneys have an unremarkable appearance. No renal or ureteral calculi. Mildly prominent periportal lymph nodes are once again noted not significantly changed. There is an area of coarse calcification the pancreatic head laterally measuring 6 mm. This is in the region of the common bile duct. There is no biliary dilatation however. This is not significantly changed. This has been present dating back to 01/17/2013. No evidence of appendicitis. No intestinal obstruction or free air. There are post hysterectomy changes. No pelvic mass or abnormal fluid collection. There is a small right inguinal hernia containing fat. No left inguinal hernia. There is a tiny umbilical hernia containing fat. Postsurgical changes of the lumbar spine with prior posterior fusion at L5-S1. There is asymmetric mix sclerosis and lucency noted in the left acetabulum. This is a chronic finding as well. Small nodes are present in the inguinal regions. No enlarged nodes apparent IMPRESSION: 1. No change in the chronic calcification in the head of the pancreas. Mildly prominent periportal lymph nodes unchanged. 2. Small right inguinal hernia and tiny umbilical hernia. No other hernia is apparent 3. Sclerosis of the left acetabulum which appears stable. This could be due to an old injury. Paget's disease is also consideration. Dictated by: Ad Sands MD 04/22/2021 17:53 Ad Sands MD in [place] 04/22/2021 17:53
== END ==
PROVIDERS: PCP Family Medicine; Visit Provider Surgery
DX: R10.32 Left lower quadrant pain (principal)
CPT/HCPCS: 74177; Q9967

== ENCOUNTER → 2021-05-13 10:48 | Outpatient (CLI) | payer OTHER, SELFPAY ==
--- NOTE | 2021-05-13 10:56 | XR_ITS ---
PROCEDURE: XR HIP LT 2-3V W/PELVIS CLINICAL INDICATION: LT HIP PAIN COMPARISON: CT ABDPELW/O CT ABD PELVIS W/O CONTRAST from 01/17/[address] ABDOMEN PELVIS W CON from 04/22/2021 FINDINGS: Mild osteoarthritic changes are present involving both hips. Mixed sclerotic changes are present involving the left acetabular roof and medial aspect of the acetabulum as well as the left ischial region. This was mention on a previous CT scan of 04/22/2021 and did appear stable compared to 01/17/2013. No fracture or dislocation. IMPRESSION: Heterogeneous areas of sclerosis involving the acetabulum and ischium on the left which could be related to old trauma or infection or even Paget's disease. Mild osteoarthritic changes of the hips. Dictated by: Ad Sands MD 05/13/2021 12:54 Ad Sands MD in [facility] 05/13/2021 12:54
--- NOTE | 2021-05-13 10:56 | XR_ITS ---
PROCEDURE: XR LUMBAR SPINE MIN 4V CLINICAL INDICATION: LOW BACK PAIN,UNSPECIFIED COMPARISON: CT CT ABDOMEN PELVIS W CON from 04/22/2021 FINDINGS: There is minimal lumbar curvature convex right. No fracture or dislocation. No lytic or blastic change. Postsurgical changes with inter pedicular screws at L5 and S1 with good alignment. Disc spacer device is also present at that level. There are small anterior osteophytes involving the lumbar spine. The disc spaces are well preserved. SI joints have an unremarkable appearance. On the right posterior oblique view there is calcification overlying the right mid abdominal region and may be related to the calcification in the pancreatic head area as seen on recent CT scan of 04/22/2021. IMPRESSION: Postsurgical and mild degenerative changes, no acute finding. Dictated by: Ad Sands MD 05/13/2021 12:14 Ad Sands MD in [place] 05/13/2021 12:14
== END ==
PROVIDERS: PCP Family Medicine; Visit Provider Family Medicine
DX: M54.50 Low back pain, unspecified (principal); M25.552 Pain in left hip
CPT/HCPCS: 72110; 73502

== ENCOUNTER 2021-08-14 09:31 | Emergency (ER) | payer OTHER, SELFPAY ==
[2021-08-14 10:20] VITALS: BP 104/64; PULSE 74; RESP 19; TEMP 37.1; O2SAT 98; BMI 25.0
--- NOTE | 2021-08-14 10:58 | HMH.EDUTC ---
[facility] [place]ression: Canker sores oral Disposition: Home, Self-Care Condition on Discharge: Good Instructions: DI for Aphthous Ulcers (Canker Sores), Aphthous Ulcers Additional Instructions: Put some milk of magnesia onto a cotton swab and dab it onto the canker sore. Repeat this 3-4 times a day. For best results, do this after swishing a hydrogen peroxide mouthwash or solution with 1 part hydrogen peroxide one part water It has been proven that using milk of magnesia can help decrease the pain of canker sores, while also speeding up the healing process. The reason that it can be effective is due to the fact that it neutralizes acid and also coats the ulcer, which protects it from bacteria and promotes healing Gargle warm salt water it may help with soreness and irritation Follow up with Dentist if no improvement or any worsening of symptoms Return if needed Straight to ER if any life threatening symptoms Follow up with Family Doctor or contact who ever did your scope if any further issues or problems Referrals: Rodriguez Torre MD [Primary Care Provider] - As needed Time of Disposition: 11:04 Medical Decision Making - Jon Inquiry Pt receiving controlled substance: No Jon was queried for this patient: No Vital Signs: 08/14/21 10:20 Temperature 98.8 F Temperature Source Oral Pulse Rate [Right Brachial] 74 Respiratory Rate 19 Blood Pressure [Right Arm] 104/64 L Blood Pressure Mean [Right Arm] 77 Blood Pressure Source [Right Arm] Automatic Cuff Blood Pressure Position [Right Arm] Sitting 02 Sat by Pulse Oximetry 98 Oxygen Delivery Method Room Air [facility] [place] - General Stated complaint: sore gums Time Seen by Provider: 08/14/21 10:58 Mode of Arrival: Ambulatory Source of Information: Patient Limitations: No Limitations Description of Symptoms (Recalled from Triage Doc. by RN): PATIENT REPORTS THAT SHE HAD AN UPPER SCOPE DONE IN [place] LAST TUESDAY AND NOW HER GUMS ARE SORE AND SWOLLEN HEENT Symptoms (Recalled from RN notes): Yes Resp Symptoms (Recalled from RN notes): No Skin Symptoms (Recalled from RN notes): No MS Symptoms (Recalled from RN notes): No Functional Status (Recalled from RN notes): WNL - History of Present Illness Provider Complaint: Patient states that she had a scope done last Tuesday and they put a bite piece like thing in there and ever since she has been having soreness and tenderness in her lower gums States that it feels like they area swollen and irritated - Related Data Home Medications Medication Instructions Recorded Confirmed atenolol 50 mg tablet 50 mg PO BID 30 Days #60 07/15/17 04/29/21 levothyroxine 75 mcg tablet 50 mcg PO DAILY 30 Days #30 07/15/17 04/29/21 oxybutynin chloride 5 mg tablet 5 mg PO BID 30 Days #60 07/15/17 04/29/21 trazodone 150 mg tablet 150 mg PO DAILY 30 Days #30 07/15/17 04/29/21 Sertraline HCl [Zoloft] 25 mg PO DAILY 08/18/19 04/29/21 topiramate 50 mg tablet 75 mg PO BID 30 Days #180 tab 05/01/20 04/29/21 verapamil 40 mg tablet 80 mg PO BID tab 05/01/20 04/29/21 Baclofen 10 mg PO BID 09/07/20 04/29/21 Omeprazole 20 mg PO DAILY 04/02/21 04/29/21 Allergies Allergy/AdvReac Type Severity Reaction Status Date / Time chlorthalidone Allergy Severe DEHYDRATION Verified 04/29/21 09:57 diazepam [From Valium] Allergy Verified 04/29/21 09:57 ibuprofen Allergy Verified 04/29/21 09:57 ketorolac [From Toradol] Allergy Verified 04/29/21 09:57 lidocaine Allergy INCREASED Verified 04/29/21 09:57 HR naproxen [From Anaprox] Allergy Verified 04/29/21 09:57 venlafaxine [From Effexor] Allergy Verified 04/29/21 09:57 From LORTAB Allergy Severe S-DIFF. Uncoded 04/29/21 09:57 BREATHING Naproxen Allergy Severe S-SWELLS-OR Uncoded 04/29/21 09:57 AL/THROAT From EFFEXOR Allergy Intermediate I-RASH Uncoded 04/29/21 09:57 From TAMIFLU Allergy Intermediate VOMITTING Uncoded 04/29/21 09:57 ADHESIVE Allergy Mild I-ITCHING
[2021-08-14 11:17] VITALS: BP 104/64; PULSE 74; RESP 19; TEMP 37.1; O2SAT 98
== END 2021-08-14 11:20 | disposition home or self-care (01) ==
PROVIDERS: Emergency Provider Nurse Practitioner; PCP Family Medicine
DX: K12.0 Recurrent oral aphthae (principal); F41.8 Other specified anxiety disorders; J44.9 Chronic obstructive pulmonary disease, unspecified; I10 Essential (primary) hypertension; Z79.899 Other long term (current) drug therapy; K21.9 Gastro-esophageal reflux disease without esophagitis
CPT/HCPCS: 99211; G0463

== ENCOUNTER → 2021-12-08 08:52 | Outpatient (CLI) | payer OTHER, SELFPAY ==
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
== END ==
PROVIDERS: PCP Family Medicine; Visit Provider Nurse Practitioner Family
DX: R10.32 Left lower quadrant pain (principal); R10.31 Right lower quadrant pain; R11.2 Nausea with vomiting, unspecified; R19.7 Diarrhea, unspecified; F32.9 Major depressive disorder, single episode, unspecified
CPT/HCPCS: 76700

== ENCOUNTER 2021-12-24 11:56 | Emergency (ER) | payer OTHER, SELFPAY ==
[2021-12-24 12:06] VITALS: BP 153/90; PULSE 61; RESP 16; TEMP 36.8; O2SAT 97; BMI 27.6
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
[2021-12-24 12:31] VITALS: BP 121/61; PULSE 53; O2SAT 94
--- NOTE | 2021-12-24 12:42 | PC.NURSE ---
pt to CT via [place] with water restoration technician
--- NOTE | 2021-12-24 12:43 | PC.NURSE ---
pt to CT via wheelchair
--- NOTE | 2021-12-24 12:48 | PC.NURSE ---
pt back from radiology; pt ambulatory without complications
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
[2021-12-24 14:39] VITALS: BP 139/75; PULSE 48; RESP 20; TEMP 37; O2SAT 98
== END 2021-12-24 14:41 | disposition home or self-care (01) ==
PROVIDERS: Emergency Provider Emergency Medicine; PCP Nurse Practitioner Family
DX: M51.36 Other intervertebral disc degeneration, lumbar region (principal); S39.012A Strain of muscle, fascia and tendon of lower back, initial encounter; Z79.899 Other long term (current) drug therapy; Z88.6 Allergy status to analgesic agent; Z88.8 Allergy status to other drugs, medicaments and biological substances; J44.9 Chronic obstructive pulmonary disease, unspecified; I10 Essential (primary) hypertension; K21.9 Gastro-esophageal reflux disease without esophagitis; F41.9 Anxiety disorder, unspecified; F32.A Depression, unspecified; F43.10 Post-traumatic stress disorder, unspecified; I34.1 Nonrheumatic mitral (valve) prolapse
CPT/HCPCS: 72131; 99284

== ENCOUNTER → 2021-12-24 15:23 | Outpatient (CLI) | payer OTHER, SELFPAY ==
--- NOTE | 2021-12-24 15:25 | MM_ITS ---
PROCEDURE INFORMATION: Exam: MG Bilateral Screening 3D Mammography Exam date and time: 12/24/2021 3:18 PM Age: 51 years old Clinical indication: Screening examination TECHNIQUE: Imaging protocol: Bilateral Screening tomosynthesis and 2D mammography including computer-aided detection (CAD) when performed. COMPARISON: 1. MG DMSB DIGITAL MAMM-SCREEN BILATERAL 12/02/2011 10:19 AM 2. MG DMSB DIGITAL MAMM-SCREEN BILATERAL 11/09/2010 9:23 AM FINDINGS: MAMMOGRAPHY: Breast composition: The breasts are heterogeneously dense, which may obscure small masses. Mass: None. Architectural distortion: None. Calcifications: No suspicious calcifications. Asymmetric density: None. Skin thickening: None. Axillary adenopathy: None. IMPRESSION: No mammographic evidence of malignancy. Annual screening is recommended unless otherwise clinically indicated. ASSESSMENT: BI-RADS Category 1: Negative
== END ==
PROVIDERS: PCP Nurse Practitioner Family; Visit Provider Obstetrics & Gynecology
DX: Z12.31 Encounter for screening mammogram for malignant neoplasm of breast (principal)
CPT/HCPCS: 77063; 77067

== ENCOUNTER → 2022-01-18 09:26 | Outpatient (CLI) | payer OTHER, SELFPAY ==
[2022-01-18 09:46] LABS: Basophils # 0.1 K/mm3 (0-0.2); Basophils % 0.8 % (0.1-2.0); Eosinophils # 0.2 K/mm3 (0.0-0.4); Hematocrit 44.9 % (37.0-47.0); Hemoglobin 13.9 g/dL (12.2-16.2); Lymphocytes # 1.4 K/mm3 (0.7-4.5); Lymphocytes % 18.3 % (10-50); Mean Corpuscular HGB Conc 30.9 g/dL (31.8-35.4); Mean Corpuscular Hemoglobin 28.8 pg (27.0-31.2); Mean Corpuscular Volume 93.3 fl (81-99); Mean Platelet Volume 8.1 fl (7.4-10.4); Monocytes # 0.4 K/mm3 (0.1-1.0); Monocytes % 4.8 % (1.7-9.3); Neutrophils # 5.7 K/mm3 (1.8-7.8); Neutrophils % 73.1 % (37.0-80.0); Platelet Count 294 K/mm3 (142-424); Red Blood Count 4.82 M/mm3 (4.20-5.40); Red Cell Distribution Width 15.4 % (11.5-17.5); White Blood Count 7.8 K/mm3 (4.8-10.8)
== END ==
PROVIDERS: PCP Family Medicine; Visit Provider Obstetrics & Gynecology
DX: Z01.812 Encounter for preprocedural laboratory examination (principal); Z20.822 Contact with and (suspected) exposure to COVID-19; N90.89 Other specified noninflammatory disorders of vulva and perineum
CPT/HCPCS: 36415; 85025; C9803; U0003; U0005

== ENCOUNTER 2022-01-20 06:44 | Day surgery (SDC) | payer OTHER, SELFPAY ==
[2022-01-20] VITALS (9 sets, daily range): BP systolic 117–148; BP diastolic 68–94; PULSE 43–68; RESP 18; TEMP 36.1–43; O2SAT 93–99; BMI 27.2
--- NOTE | 2022-01-20 07:42 | P.PN_ITS ---
[facility] Medical History Anxiety Depression GERD (gastroesophageal reflux disease) Hypertension Hypothyroidism IBS (irritable bowel syndrome) PTSD (post-traumatic stress disorder) Surgical History (Updated 01/20/22 @ 07:43 by Marlen Faria, RN) H/O rhinoplasty H/O thyroidectomy H/O: hysterectomy History of back surgery Hx of dilation and curettage Hx of tubal ligation Status post tooth extraction Family History (Updated 01/20/22 @ 07:08 by Marlen Faria, RN) Father Family history of diabetes mellitus type II Grandmother Colon cancer Skin cancer Family/Other Cancer of kidney Other Hypertension Social History (Updated 01/20/22 @ 07:16 by Marlne Faria RN) Smoking Status: Former smoker pack-years: 20 years smoked: 20 smoking status stop date: 2003 second hand exposure: Yes alcohol intake: former counseling provided: none substance use type: marijuana current occupational status: student and other Travel in the last 8 weeks: None household members: spouse housing: house current occupational exposures/hazards: No caffeine: Yes [facility] Anesthesia Checklist Patient Identification Patient Identification: Arm Band Structural Data Admitted From: Home Planned Operative Procedure/s: Excision of Vulvar Mass Consent for Planned Operative Procedure(s) Verified: Yes Verified Documents: Surgical Consent and History and Physical NPO Status Verified Time NPO: 00:00 Additional verifications Anesthesia Reactions: No Hx Blood Transfusions: No Blood Transfusion Reaction: No Airway Assessment C-Spine Mobility Assessed: Yes TMJ Mobility Assessed: Yes Dentition: Edentulous Neurological Assessment Level of Consciousness: Awake and Alert Anesthesia Plan Anesthesia Risk discussed: Yes Anesthesia Plan: Verified ASA Class: II Anesthesia Type: General
--- NOTE | 2022-01-20 10:37 | P.OP_ITS ---
Date of procedure: 01/20/22 Pre-op Diagnosis:: 1. Vulvar lesion Post-op Diagnosis:: 1. Vulvar lesion 2. Vulvar cyst Procedure performed:: Drainage of vulvar cyst with excision of cyst wall Surgeon:: Sadie Saucedo DO [employer] E[employer](s):: N/a Anesthesia: GETA Estimated blood loss (mL): 10 Clinical Note:: Ms Sapna Moreno is a pleasant 51 yo, [id number], who presents for preop visit. She complains of mass on left labia majora. She states this was removed years ago but came back. It is not painful unless it is rubbed, like with intercourse or other activities. She would like to have it removed. Operative findings:: 1 cm soft mass on inner left labia majora, multiple small inclusion cysts noted on right labia majora Operative note:: Skin underneath vulvar lesion was injected with 0.5% Marcaine. Scalpel was used to make an eliptical incision around 1 cm round lesion. Lesion was grasped with Adson forceps and spontaneous drainage of clear fluid noted. Cyst wall was grasped with Adsons and excised at with metzenbaum scissors. Specimen was handed off of sterile field and will be sent to pathology for review. 3-0 Vicryl suture was used in a running locking fashion to reapproximate skin. Hemostasis was noted. Condition: stable Disposition: same day Specimens:: Vulvar cyst wall Complications:: None
--- NOTE | 2022-01-21 08:08 | EXP.ANES.II ---
[facility] Anesthesia Record Part II Anesthesia Record Part II Discharge Time: 11:13 Destination: Surgical Day Care (OP Surgery) PACU nurse assessment reviewed?: Yes Patient Condition:: Good Anesthesia Complications:: None Swallowing reflex intact?: Yes Cyanosis?: No Blood Pressure: 129/83 Pulse Rate: 68 Temperature: 97.5 F Mental Status: Alert & Oriented Pain level:: 0 Nausea and/or vomitting:: None Intake, IV Amount: 0
[2022-01-21 08:09] VITALS: BP 129/83; PULSE 68; TEMP 36.4
--- NOTE | 2022-01-21 10:32 | P.PNANES_ITS ---
[facility] Anesthesia Record Part I Anesthesia Record I Intake, IV Amount: 800 Estimated blood loss (mL): 0 Urine output (mL): 0 Blood Products used (#): none Blood Pressure: 117/53 SaO2: 97 Pulse Rate: 71 Respiratory Rate: 20 Temperature: 97 F Patient is:: Drowsy and Stable Stable to PACU at:: 10:43
[2022-01-21 10:34] VITALS: BP 117/53; PULSE 71; RESP 20; TEMP 36.1; O2SAT 97
== END 2022-01-20 11:48 | disposition home or self-care (01) ==
PROVIDERS: PCP Nurse Practitioner Family; Visit Provider Obstetrics & Gynecology
PROC: (CPT 11422; principal; 2022-01-20 08:30)
DX: N90.7 Vulvar cyst (principal); Z79.899 Other long term (current) drug therapy
CPT/HCPCS: 11422; J2405

== ENCOUNTER 2022-01-22 09:00 | Emergency (ER) | payer OTHER, SELFPAY ==
[2022-01-22 09:46] VITALS: BP 103/75; PULSE 60; RESP 17; TEMP 36.8; O2SAT 97; BMI 27.2
--- NOTE | 2022-01-22 10:01 | EXP.UTC ---
Discharge Plan Disposition Patient Disposition: Home, Self-Care Condition: Good Prescriptions Prescriptions: New amoxicillin-pot clavulanate 875-125 mg Tablet 1 tab PO Q12H Qty: 20 0RF No Action oxybutynin chloride 5 mg tablet 5 mg PO BID 30 Days Qty: 60 Label Comments: trazodone 150 mg tablet 50 mg PO DAILY 30 Days Qty: 30 Label Comments: atenolol 50 mg tablet 50 mg PO BID 30 Days Qty: 60 Label Comments: levothyroxine 75 mcg tablet 50 mcg PO DAILY 30 Days Qty: 30 Label Comments: topiramate 50 mg tablet 50 mg PO BID 30 Days Qty: 180 Label Comments: verapamil 40 mg tablet 80 mg PO BID gabapentin 300 mg capsule 300 mg PO BID Linzess 145 mcg capsule 145 mcg PO DAILY oxycodone 5 mg tablet 5 mg PO Q6H PRN (Reason: pain) Qty: 12 0RF sertraline 25 MG tablet 25 mg PO DAILY omeprazole 20 MG capsule,delayed release(DR/EC) 20 mg PO DAILY Referrals Follow up/Referrals: Kailee Minaya APRN [Primary Care Provider] - See instructions Activity Restrictions/Add. Instructions Additional Instructions/Restrictions: Take all antibiotics as prescribed until gone Warm compresses several times a day Return for re-evaluation if worsening pain, swelling, vision loss, etc Clinical Impressions Clinical Impression: Periorbital cellulitis of left eye Instructions Patient Instructions: DI for Orbital Cellulitis Discharge ED Provider: Jana Oliveira [facility] General Stated complaint: LT eye pain, redness, inflammation Mode of Arrival: Ambulatory Source of Information: Patient Limitations: No Limitations Time Seen by Provider: 01/22/22 10:01 Description of Symptoms (Recalled from Triage Doc. by RN): pt comes in with c/o left eye soreness, and swelling. symptoms began this am. HEENT Symptoms (Recalled from RN notes): Yes Resp Symptoms (Recalled from RN notes): No Skin Symptoms (Recalled from RN notes): No MS Symptoms (Recalled from RN notes): No Functional Status (Recalled from RN notes): n/a History of Present Illness Provider Complaint: Left eye pain, redness, swelling since last night. Had unrelated vaginal surgery earlier this week. No trauma to left eye. Vision unaffected except due to swelling. Related Data Home Medications Medication Instructions Recorded Confirmed atenolol 50 mg tablet 50 mg PO BID High blood pressure 07/15/17 01/20/22 30 days ##60 levothyroxine 75 mcg tablet 50 mcg PO DAILY thyroid 30 days 07/15/17 01/20/22 ##30 oxybutynin chloride 5 mg tablet 5 mg PO BID bladder 30 days ##60 07/15/17 01/20/22 trazodone 150 mg tablet 50 mg PO DAILY sleep 30 days ##30 07/15/17 01/20/22 sertraline 25 mg tablet 25 mg PO DAILY Depression 08/18/19 01/20/22 topiramate 50 mg tablet 50 mg PO BID Headache 30 days #180 05/01/20 01/20/22 tabs verapamil 40 mg tablet 80 mg PO BID Hypertension 05/01/20 01/20/22 omeprazole 20 mg capsule,delayed 20 mg PO DAILY Reflux/Acid reflux 04/02/21 01/20/22 release gabapentin 300 mg capsule 300 mg PO BID Pain 12/21/21 01/20/22 linaclotide 145 mcg capsule 145 mcg PO DAILY BOWELS 12/21/21 01/20/22 ([place]) Previous Rx's Medication Instructions Recorded oxycodone 5 mg tablet 5 mg PO Q6H PRN pain #12 tabs 01/21/22 amoxicillin 875 mg-potassium 1 tab PO Q12H #20 tabs 01/22/22 clavulanate 125 mg tablet Allergies Allergy/AdvReac Type Severity Reaction Status Date / Time chlorthalidone Allergy Severe DEHYDRATION Verified 01/22/22 09:53 albuterol Allergy Mild HEART Verified 01/22/22 09:53 RACING diazepam [From Valium] Allergy Verified 01/22/22 09:53 ibuprofen Allergy Verified 01/22/22 09:53 ketorolac [From Toradol] Allergy Verified 01/22/22 09:53 lidocaine Allergy INCREASED Verified 01/22/22 09:53 HR naproxen [From Anaprox] Allergy Verified 01/22/22 09:53 venlafaxine [From Effexor] Allergy Verified 01/22/22 09:53 From
[2022-01-22 10:13] VITALS: BP 103/75; PULSE 60; RESP 17; TEMP 36.8
== END 2022-01-22 10:26 | disposition home or self-care (01) ==
PROVIDERS: Emergency Provider Physician Assistant; PCP Nurse Practitioner Family
DX: L03.213 Periorbital cellulitis (principal)
CPT/HCPCS: 99212; G0463

== ENCOUNTER → 2022-07-30 08:17 | Outpatient (CLI) | payer OTHER, SELFPAY ==
--- NOTE | 2022-07-30 08:18 | MR_ITS ---
FINAL REPORT CLINICAL HISTORY: Low back pain. LEG WEAKNESS AND LOSS OF LEG MOBILITY. COMPARISON: none FINDINGS: Multiplanar MR imaging of the lumbar spine was performed without contrast. Fusion at L5-S1. On the sagittal T2-weighted images, disc degeneration is seen at several levels. The vertebral alignment is normal. There is no evidence of fracture. No bony mass is identified. The conus has an unremarkable appearance. T12-L1: There is no significant canal stenosis or neural foraminal narrowing. L1-2: An annular bulge is present. There is no significant canal stenosis or neural foraminal narrowing. L2-3: An annular bulge is present. There is no significant canal stenosis or neural foraminal narrowing. L3-4: An annular bulge is present. There is no significant canal stenosis or neural foraminal narrowing. L4-5: An annular bulge is present. There is no significant canal stenosis or neural foraminal narrowing. L5-S1: Fusion. Mild left neural foraminal narrowing. IMPRESSION: Multilevel degenerative disc disease and spondylosis as described. Reviewed, Interpreted and Dictated by Som Young III, MD Transcribed by Devora Mccallum Authenticated and [facility]
== END ==
PROVIDERS: PCP Emergency Medicine; Visit Provider Emergency Medicine
DX: M51.9 Unspecified thoracic, thoracolumbar and lumbosacral intervertebral disc disorder (principal); M54.50 Low back pain, unspecified
CPT/HCPCS: 72148; 76376

== ENCOUNTER → 2022-09-01 09:34 | Outpatient (CLI) | payer OTHER, SELFPAY ==
[2022-09-01 15:58] LABS: Barbiturates Screen,Urine Negative ng/ml (<200)
[2022-09-01 15:59] LABS: Benzodiazepines Screen,Urine Negative ng/ml (<200)
[2022-09-01 16:00] LABS: Amphetamine/Metha Screen,Urine Negative ng/ml (<1000)
[2022-09-01 16:01] LABS: Cocaine Screen,Urine Negative ng/ml (<300); Methadone Screen,Urine Negative ng/ml (<300)
[2022-09-01 16:02] LABS: Cannabinoid Screen,Urine Positive ng/ml (<50); Opiate Screen,Urine Negative ng/ml (<300)
[2022-09-01 16:03] LABS: Phencyclidine Screen,Urine Negative ng/ml (<25)
== END ==
PROVIDERS: PCP Emergency Medicine; Visit Provider Emergency Medicine
DX: Z79.899 Other long term (current) drug therapy (principal)
CPT/HCPCS: 80305